=== PATIENT | female | born 1975 | race Caucasian/White ===

== ENCOUNTER 2024-05-06 23:04 | Emergency (ER) | payer MEDICAID ==
[~2024-05-06] VITALS: Ht 162.6 cm; Wt 59.0 kg
[2024-05-07 00:07] LABS: BASOPHILS # (AUTO) 0.1 K/UL (0.0-0.2); BASOPHILS % (AUTO) 2.2 % (0.0-2.0); EOSINOPHILS % (AUTO) 0.3 % (0.0-7.0); HEMATOCRIT 29.1 % (31.2-41.9); HEMOGLOBIN 9.1 g/dL (10.9-14.3); LYMPHOCYTES # (AUTO) 2.3 K/uL (0.8-4.8); LYMPHOCYTES % (AUTO) 38.9 % (20.5-51.5); MEAN CORPUSCULAR HEMOGLOBIN 24.3 uug (24.7-32.8); MEAN CORPUSCULAR HGB CONC 31 g/dL (32.3-35.6); MEAN CORPUSCULAR VOLUME 77.7 fL (75.5-95.3); MONOCYTES # (AUTO) 0.5 K/uL (0.1-1.30); MONOCYTES % (AUTO) 7.9 % (0.0-11.0); NEUTROPHILS # (AUTO) 3.1 K/uL (1.8-8.9); NEUTROPHILS % (AUTO) 50.7 % (38.5-71.5); PLATELET COUNT (AUTO) 292 K/uL (179-408); RED BLOOD CELL COUNT(AUTO) 3.75 MIL/uL (3.63-4.92); RED CELL DISTRIBUTION WIDTH 17.8 % (12.3-17.7)
[2024-05-07 00:16] LABS: ETHANOL 219 MG/DL (0-10)
[2024-05-07 00:28] LABS: *BILIRUBIN,URIN NEGATIVE (NEGATIVE); *BLOOD, URINE NEGATIVE (NEGATIVE); *CLARITY,URINE CLEAR (CLEAR); *COLOR,URINE YELLOW (YELLOW); *KETONES,URINE TRACE (NEGATIVE); *PROTEIN,URINE NEGATIVE (NEGATIVE); *UROBILINOGEN,URINE 0.2 E.U./dl (NORMAL); LEUKOCYTE ESTERASE ,URINE NEGATIVE (NEGATIVE); NITRITE, URINE NEGATIVE (NEGATIVE); UGLUCOSE NEGATIVE (NEGATIVE)
[2024-05-07 00:33] LABS: *URINE HCG, QUAL NEGATIVE (NEGATIVE)
[2024-05-07 00:37] LABS: ALANINE AMINOTRANSFERASE 23 U/L (14-59); ALBUMIN 3.7 g/dL (3.4-5.0); ALKALINE PHOSPHATASE 66 U/L (50-136); ASPARTATE AMINOTRANSFERASE 16 U/L (15-37); BILIRUBIN,TOTAL 0.3 mg/dL (0.2-1.0); CALCIUM 8.7 mg/dL (8.5-10.1); CARBON DIOXIDE 25 mmol/L (21-32); CHLORIDE 104 mmol/L (98-107); CREATININE 0.7 mg/dL (0.6-1.3); GLUCOSE 95 mg/dL (74-106); POTASSIUM 3.9 mmol/L (3.5-5.1); SODIUM SERUM 141 mmol/L (136-145); TOTAL PROTEIN, SERUM 8.1 g/dL (6.4-8.2); UREA NITROGEN, BLOOD 11 mg/dL (7-18)
[2024-05-07 00:38] LABS: *AMPHETAMINE, URINE POSITIVE (NEGATIVE); *BARBITURATE, URINE NEGATIVE (NEGATIVE); *BENZODIAZEPINE, URINE NEGATIVE (NEGATIVE); *CANNABINOID, URINE NEGATIVE (NEGATIVE); *COCCAINE, URINE NEGATIVE (NEGATIVE); *OPIATE, URINE NEGATIVE (NEGATIVE); *PHENCYCLIDINE SCREEN,URINE NEGATIVE (NEGATIVE); BACTERIA,URINE FEW /HPF (NONE SEEN); FENTANYL, URINE NEGATIVE (NEGATIVE); RBC,URINE NONE SEEN /HPF (0-3); SQUAMOUS EPITHELIAL CELL,UR FEW /HPF (NONE SEEN); WBC,URINE 0-3 /HPF (0-3)
[2024-05-07 00:39] LABS: URIC ACID CRYSTALS,URINE FEW /HPF (NONE SEEN)
[2024-05-07 01:28] LABS: ACETAMINOPHEN < 10.0 ug/mL (10-30)
[2024-05-07] MEDS ORDERED: THIAMINE HCL 100 MG TABLET ONE (06:50)
[2024-05-07] MEDS: THIAMINE HCL 100 MG TABLET PO ONE (06:51)
[2024-05-07 07:30] LABS: IRON, SERUM 30 ug/dL (50-175)
[2024-05-07] MEDS ORDERED: CYANOCOBALAMIN 1000 MCG/ML VIAL ONE (09:31)
[2024-05-07] MEDS: CYANOCOBALAMIN 1000 MCG/ML VIAL IM ONE (09:37)
[2024-05-07] MEDS ORDERED: FERR325T23 PO (10:04)
[2024-05-07] MEDS ORDERED: BISA-79 PO (10:04)
[2024-05-07] MEDS ORDERED: BISA10SU61 RC (10:04)
[2024-05-07] MEDS ORDERED: MAGNESIUM HYDROXIDE 30 ML LIQUID UDC ONE (10:18)
[2024-05-07] MEDS: MAGNESIUM HYDROXIDE 30 ML LIQUID UDC PO ONE (10:19)
[2024-05-07] MEDS ORDERED: IBUPROFEN 600 MG TABLET ONE (10:59)
[2024-05-07] MEDS: IBUPROFEN 600 MG TABLET PO ONE (11:00)
[2024-05-07 12:01] VITALS: BP 146/92; TEMP 98.8; O2SAT 95
== END 2024-05-07 12:02 | disposition home or self-care (01) ==
LOC: ER 23:04
DX: F10.129 Alcohol abuse with intoxication, unspecified (principal); E53.8 Deficiency of other specified B group vitamins; D50.9 Iron deficiency anemia, unspecified; F15.10 Other stimulant abuse, uncomplicated; R10.2 Pelvic and perineal pain; Y90.9 Presence of alcohol in blood, level not specified
CPT/HCPCS: 80053; 85025; 36415 ×2; 99284; 80299; 80320; 80307; 81001; 82607; 84703; 83550; 74018; 96372; 98960; J3420; A4606; A4663; G0480